=== PATIENT | female | born 1985 | race Caucasian/White ===

== ENCOUNTER 2017-11-24 07:10 | Emergency (ER) | payer OTHER ==
[~2017-11-24] VITALS: Ht 167.6 cm; Wt 123.0 kg
[2017-11-24 07:12] VITALS: BP 136/94
[2017-11-24] MEDS ORDERED: FLUORESCEIN OPHTHALMIC 1 MG STRIP EACHEYE ONE (07:30)
[2017-11-24] MEDS ORDERED: PROPARACAINE OPHTH 0.5%, 15ML EACHEYE ONE (07:30)
[2017-11-24] MEDS ORDERED: PROPARACAINE OPHTH 0.5%, 15ML ONE (07:33)
[2017-11-24] MEDS ORDERED: FLUORESCEIN OPHTHALMIC 1 MG STRIP ONE (07:33)
== END 2017-11-24 07:57 | disposition home or self-care (01) ==
LOC: ED 07:45
DX: B30.9 Viral conjunctivitis, unspecified (principal)
CPT/HCPCS: 99283